=== PATIENT | female | born 1935 | race Caucasian/White ===

== ENCOUNTER 2021-12-29 07:49 | Emergency (ER) | payer MEDICARE, OTHER ==
[~2021-12-29] VITALS: Ht 152.4 cm; Wt 59.0 kg
[~2021-12-29 07:49] MED LIST: FLUO20CA39 PO; GLIM4TAB36 PO; LORA10TA7 PO; MECL-159 PO; METF-416 PO; NAPROXYN; SIMV-46 PO; SITA100T11 PO
[2021-12-29 08:46] LABS: BASOPHILS % 0.2 % (0.0-2.0); EOSINOPHILS % 0.5 % (0.0-5.0); HEMATOCRIT. 33.5 % (36.0-48.0); HEMOGLOBIN. 11.1 g/dL (12.0-16.0); LYMPHOCYTES % 21.6 % (20.0-50.0); MEAN CORPUSCULAR HEMOGLOBIN 29.8 pg (28.0-32.0); MEAN CORPUSCULAR VOLUME 89.7 fL (81.0-99.0); MEAN PLATELET VOLUME 8.9 fl (7.4-10.4); MONOCYTES % 4.4 % (2.0-8.0); NEUTROPHILS % 73.3 % (40.0-76.0); PLATELET 237 x1000/uL (130-400); RED BLOOD CELL COUNT 3.74 mill/uL (4.2-5.4); RED CELL DISTRIBUTION WIDTH 14.6 % (11.6-14.6)
[2021-12-29 08:55] LABS: CHLORIDE 106 mEq/L (98-107)
[2021-12-29] MEDS ORDERED: TOPUD PO (10:09)
[2021-12-29 11:02] VITALS: BP 127/56
== END 2021-12-29 11:10 | disposition home or self-care (01) ==
LOC: ER 07:49
DX: M25.552 Pain in left hip (principal); G89.11 Acute pain due to trauma; W06.XXXA Fall from bed, initial encounter; Y93.84 Activity, sleeping; Y92.013 Bedroom of single-family (private) house as the place of occurrence of the external cause; I10 Essential (primary) hypertension; E11.9 Type 2 diabetes mellitus without complications; Z96.642 Presence of left artificial hip joint
CPT/HCPCS: 36415; 71045; 72170; 73552; 80053; 85025; 99285

== ENCOUNTER 2023-06-05 13:50 | Emergency (ER) | payer MEDICARE ==
[~2023-06-05] VITALS: Ht 165.1 cm; Wt 65.0 kg
[~2023-06-05 13:50] MED LIST changes: -MECL-159 PO; +MECL-299 PO; +TOPUD PO
[2023-06-05 13:58] VITALS: TEMP 97.9; O2SAT 96
[2023-06-05 17:54] VITALS: BP 128/62; PULSE 80; RESP 18
== END 2023-06-05 18:09 | disposition home or self-care (01) ==
LOC: ER 14:14
DX: G51.0 Bell's palsy (principal); H91.91 Unspecified hearing loss, right ear; I10 Essential (primary) hypertension; E11.9 Type 2 diabetes mellitus without complications; W18.30XA Fall on same level, unspecified, initial encounter; Y93.01 Activity, walking, marching and hiking; Y92.89 Other specified places as the place of occurrence of the external cause; Y99.8 Other external cause status
CPT/HCPCS: 82962; 99284